=== PATIENT | female | born 1990 | race Caucasian/White ===

== ENCOUNTER 2017-07-16 19:58 | Inpatient (IN) | payer OTHER ==
[~2017-07-16] VITALS: Ht 154.9 cm; Wt 91.6 kg
[~2017-07-16 19:58] MED LIST: XANAX0.25 M1 PO; ZOFRAN ODT4 M1 PO
[2017-07-16 23:39] LABS: ABSOLUTE BASOPHIL COUNT 0 /CUMM (0.0-0.2); ABSOLUTE EOSINOPHIL COUNT 0.1 /CUMM (0.0-0.7); ABSOLUTE GRANULOCYTE CT 11.1 /CUMM (1.4-6.5); ABSOLUTE LYMPH COUNT 1.6 /CUMM (1.2-3.4); ABSOLUTE MONOCYTE COUNT 0.6 /CUMM (0.10-0.60); BASOPHIL % 0.3 % (0.0-2.0); EOSINOPHIL % 0.4 % (0-5); GRANULOCYTE % 82.6 % (42.2-75.2); HEMATOCRIT 37.6 % (37-47); MEAN CORPUSCULAR HGB 31.7 PG (27.0-31.0); MEAN CORPUSCULAR HGB CONC 33.7 G/DL (33.0-37.0); MEAN PLATELET VOLUME 10.9 FL (7.4-10.4); PLATELET COUNT 159 /CUMM (130-400); WHITE BLOOD CELL COUNT 13.4 /CUMM (4.8-10.8)
[2017-07-16 23:52] VITALS: BP 126/73
--- NOTE | 2017-07-17 08:32 | History & Physical Pre-Op ---
General Information and HPI History of Present Illness: 26yo lmp 10/08/16 edc 06/30/17 admitted for therapeutic rest overnight for prolonged latent phase now in active labor. care complete and unremarkable. 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 EENTM: Reports: no symptoms. Cardiovascular: Reports: no symptoms. Respiratory: Reports: no symptoms. GI: Reports: no symptoms. Genitourinary: Reports: see HPI. Musculoskeletal: Reports: no symptoms. Skin: Reports: no symptoms. Neurological/Psychological: Reports: no symptoms. Hematologic/Endocrine: Reports: no symptoms. Immunologic/Allergic: Reports: no symptoms. All Other Systems: Reviewed and Negative Exam & Diagnostic Data Last 24 Hrs of Vital Signs/I&O Vital Signs Date Time Temp Pulse Resp B/P B/P Pulse O2 O2 Flow FiO2 Mean Ox Delivery Rate 07/16 2352 126/73 Intake & Output 07/17 1600 07/17 0800 07/17 0000 Intake Total Output Total Balance Patient 202 lb Weight Physical Exam: HEENT: NCAT Chest: CTA CV: nl S1S2 Abd; gravid, cephalic, EFW 7 Cx: 4/90/0 Ext: no c/c/e Assessment/Plan Assessment/Plan: active labor at term expectant mgmt As Ranked By This Provider Problem List: 1. Active labor at term
[2017-07-17] MEDS ORDERED: DOCUSATE SODIU100 M3 PO (13:53)
[2017-07-17] MEDS ORDERED: IBUPROFEN800 M1 PO (13:53)
--- NOTE | 2017-07-17 13:55 | Labor & Delivery Summary ---
Delivery Summary Vaginal Delivery: Vaginal: vertex Episiotomy/Lacerations: Episiotomy/Lacerations: lac (1st degree vaginal) Type: 1st deg vaginal Repair: 3-0 poly Anesthesia: epi Placenta: Placenta: normal, 3 vessel Anesthesia: epi Baby's Weight: 8- Apgars - 1 Min: 8 Apgars - 5 Min: 9
[2017-07-18 08:47] LABS: ABSOLUTE BASOPHIL COUNT 0 /CUMM (0.0-0.2); ABSOLUTE EOSINOPHIL COUNT 0.1 /CUMM (0.0-0.7); ABSOLUTE GRANULOCYTE CT 7.1 /CUMM (1.4-6.5); ABSOLUTE LYMPH COUNT 1.6 /CUMM (1.2-3.4); ABSOLUTE MONOCYTE COUNT 0.6 /CUMM (0.10-0.60); BASOPHIL % 0.3 % (0.0-2.0); RBC DISTRIBUTION WIDTH 13.6 % (11.5-14.5); RED BLOOD CELL CT 3.41 /CUMM (4.20-5.40); WHITE BLOOD CELL COUNT 9.4 /CUMM (4.8-10.8)
[2017-07-18 09:41] LABS: EOSINOPHIL % 0.7 % (0-5); GRANULOCYTE % 76.2 % (42.2-75.2); MEAN CORPUSCULAR HGB 32.1 PG (27.0-31.0); MEAN CORPUSCULAR HGB CONC 33.9 G/DL (33.0-37.0); MEAN CORPUSCULAR VOLUME 94.6 FL (81.0-99.0); MEAN PLATELET VOLUME 11.3 FL (7.4-10.4); PLATELET COUNT 136 /CUMM (130-400)
[2017-07-18 09:53] LABS: HEMATOCRIT 32.3 % (37-47)
--- NOTE | 2017-07-18 10:49 | PN- Post Delivery/GYN ---
Subjective Subjective: NO COMPLAINTS Objective Last 24 Hrs of Vital Signs/I&O Vital Signs Date Time Temp Pulse Resp B/P B/P Pulse O2 O2 Flow FiO2 Mean Ox Delivery Rate 07/17 1519 100.5 Physical Exam: PE THIN WF IN NAD ABD SOFT NT LOCHIA MINIMAL EXT -EDEMA -HOMANS Assessment/Plan Assessment/Plan ASSESS S/P PLAN CONT PPC
== END 2017-07-19 12:20 | DRG 560 ==
LOC: CBCO 19:58 → GNO 22:40
PROVIDERS: Obstetrics & Gynecology
PROC: 0HQ9XZZ Repair Perineum Skin, External Approach (ICD-10-PCS; principal; 2017-07-17)
PROC: 10E0XZZ Delivery of Products of Conception, External Approach (ICD-10-PCS; principal; 2017-07-17)
DX: O70.0 First degree perineal laceration during delivery (principal); Z3A.40 40 weeks gestation of pregnancy; Z37.0 Single live birth; Z88.0 Allergy status to penicillin
CPT/HCPCS: GNOS; 81001; 87086; G0378; G0463; J7120